=== PATIENT | male | born 1980 | race Caucasian/White ===

== ENCOUNTER 2020-08-28 23:38 | Emergency (ER) | payer SELFPAY ==
--- NOTE | 2020-08-29 00:58 | RADIOLOGY REPORT (SQ) ---
EXAM DESCRIPTION: CT HEAD WITHOUT IV CONTRAST COMPLETED DATE/TME: 08/29/2020 00:16 CLINICAL HISTORY: 39 years, Male, AMS, tachypnea COMPARISON: None. TECHNIQUE: 207 Images stored on PACS. All CT scanners at this facility use dose modulation, iterative reconstruction, and/or weight based dosing when appropriate to reduce radiation dose to as low as reasonably achievable (ALARA). [facility]: Dose Right [facility]: CareDose [facility]: Dose Right [facility]: Teradose 4D [facility]: [employer] LIMITATIONS: None. FINDINGS: The globes are intact. The paranasal sinuses and mastoid air cells are well aerated. No displaced or depressed skull fracture. No acute intracranial hemorrhage. CT is limited for evaluation of acute infarct. However, there are multiple areas of diminished attenuation, the largest in the left posterior parieto-occipital region, with other areas of diminished attenuation in the left temporal region and left cerebellar hemisphere. These are nonspecific but areas of evolving infarct are considered. Underlying mass is not excluded. No midline shift. IMPRESSION: Nonspecific areas of diminished attenuation, as described above. Areas of evolving infarct are considered. Other etiologies are not excluded. Consider follow-up with dedicated MRI. TECHNICAL DOCUMENTATION: Quality ID # [id number]: Final reports with documentation of one or more dose reduction techniques (e.g., Automated exposure control, adjustment of the mA and/or kV according to patient size, use of iterative reconstruction technique) copyright 2011 [employer]- All Rights Reserved
--- NOTE | 2020-08-29 01:00 | RADIOLOGY REPORT (SQ) ---
EXAM DESCRIPTION: X-ray, single view of the chest CLINICAL HISTORY: 39 years Male, AMS, tachypnea COMPARISON: None. FINDINGS: Lungs: Lung volumes are low. There is extensive multifocal parenchymal opacification and consolidation which has a nodular appearance. This is concerning for multifocal pneumonia. Findings are most pronounced in the right upper lobe. No pneumothorax or pleural effusion. Mediastinum: Heart size is enlarged. Mediastinum is within normal limits. Bones: Osseous structures are normal. IMPRESSION: Low lung volumes with multifocal nodular infiltrate throughout the lung parenchyma consistent with multifocal pneumonia.
[2020-08-29] MEDS ORDERED: VANCOMYCIN HCL INJ 1000 MG VIAL IV ONE (01:09)
[2020-08-29] MEDS ORDERED: NORMAL SALINE 1000 ML 1,000 ML IV ONE ×3 (01:09→05:28)
[2020-08-29] MEDS ORDERED: CEFEPIME 2 GM/D5W RTU 2 GM/50 ML RTUPB IV ONE (01:24)
--- NOTE | 2020-08-29 01:56 | ER Document Report ---
ED General - General Chief Complaint: Altered Mental Status Stated Complaint: BODY ACHES,ALTERED MENTAL STATUS Time Seen by Provider: 08/28/20 23:55 - HPI Notes: Patient is a 39-year-old male who presents with altered mental status and shortness of breath. He has a history of IV drug abuse. Patient was picked up by police for trespassing. They found him to be altered and took him to the ER. Patient is unable to provide a history. He keeps saying "I don't feel good". Patient is unable to tell me his name or where he is. He is afebrile. Patient is tachypneic. Patient was placed on supplemental nasal cannula oxygen. Past Medical History - General Information source: Patient, Emergency Med Personnel - Social History Smoking Status: Unknown if Ever Smoked Family History: Other Review of Systems - Review of Systems -: Yes ROS unobtainable due to patient's medical condition Physical Exam - Vital signs Vitals: Resp Pulse Ox 23 H 91 L 08/28/20 23:40 08/28/20 23:40 - General In distress: Moderate Notes: VITAL SIGNS: Tachypneic, tachycardic. GENERAL: Acute distress. HEAD: Normal with no signs of head trauma. EYES: EOMI, conjunctiva normal, no discharge. EARS: Hearing grossly intact. NOSE: Normal. NECK: Normal range of motion, no tenderness, supple, no lymphadenopathy, No adenopathy, no JVD. No obvious meningismus. CHEST: Clear breath sounds bilaterally. No wheezes, rales, or rhonchi. CARDIAC: Regular rate and rhythm. VASCULAR: No Edema. ABDOMEN: Normal and soft with no tenderness GENITOURINARY: Normal, No tenderness LYMPATHTIC: No lymphadenopathy noted. MUSCULOSKELETAL: Good range of motion of all major joints. Extremities without clubbing, cyanosis or edema. NEUROLOGICAL: Alert, not oriented. No focal sensory or strength deficits. S peech normal. Confused. Course - Re-evaluation Re-evalutation: 08/29/20 01:57 Patient is confused and unable to follow commands. He is alert. Patient went directly to CT. His head CT is concerning for involuting areas of infarct versus mass. Patient's x-ray is also concerning for multifocal pneumonia. The radiologist called me and recommended we get a stat MRI with contrast. I am unable to do this at this time at this facility. I did discuss with [facility] and who stated that they do not have any beds at this time. I also contacted [facility] and am waiting for their response. Patient was started on immediate antibiotics and fluids. He is on 4 L nasal cannula. I was called to bedside as patient is becoming more agitated. He is now on 15 L nonrebreather with a pulse ox of 85%. Patient is also vomiting blood. Decision was made to intubate. Central line was placed in the right femoral region as patient had very poor access. Patient was given a heparin bolus as his troponin is 3 and he is hypoxic even on 100% FiO2. The infusion of heparin was canceled as his platelets came back at 32. I called back [facility] as patient will now be requiring ICU for transfer. Patient's Xray after intubation is concerning for worsening pneumonia. I did not covid test him because we do not have a rapid test available. 08/29/20 01:58 08/29/20 04:23 08/29/20 05:04 Patient was accepted at [facility] and will be going by helicopter. They did request that I obtain a CT scan of his chest abdomen and pelvis. Patient continues to be febrile. He was ordered an additional rectal Tylenol. Transport is at bedside. 08/31/20 02:34 - Vital Signs Vital signs: Temp Pulse Resp BP Pulse Ox 101.0 F H 29 H 113/35 L 89 L 08/29/20 06:06 08/29/20 06:06 08/29/20 06:06 08/29/20 06:06 - Laboratory Result Diagrams: 08/29/20 01:25 08/29/20 01:25 Laboratory results interpreted by me: 08/29/20 08/29/20 08/29/20 01:25 01:25 01:25 WBC 14.5 H Hgb 13.3 L RDW 15.0 H Plt Count 39 L Seg Neuts % (Manual) 94 H Band Neutrophils % 2 L Lymphocytes % (Manual) 2 L Monocytes % (Manual) 2 L Abs Neuts (Manual) 13.9 H Abs Lymphs (Manual) 0.3 L Carbonic Acid ABG pH ABG pCO2 Sodium 129.5 L Chloride 93 L BUN 41 H Glucose 121 H Lactic Acid 3.8 H Total Bilirubin 1.5 H Direct Bilirubin 0.6 H AST 112 H ALT 54 H Creatine Kinase 254 H Total Protein 6.2 L Albumin 3.1 L Urine Protein Urine Blood 08/29/20 08/29/20 08/29/20 04:55 05:16 05:38 WBC Hgb RDW Plt Count Seg Neuts % (Manual) Band Neutrophils % Lymphocytes % (Manual) Monocytes % (Manual) Abs Neuts (Manual) Abs Lymphs (Manual) Carbonic Acid 1.61 H ABG pH 7.22 L ABG pCO2 53.6 H Sodium Chloride BUN Glucose Lactic Acid 2.7 H Total Bilirubin Direct Bilirubin AST ALT Creatine Kinase Total Protein Albumin Urine Protein 100 H Urine Blood MODERATE H - Diagnostic Test Radiology reviewed: Image reviewed, Reports reviewed - EKG Interpretation by Me EKG shows normal: Sinus rhythm Rate: Tachycardia Rhythm: NSR When compared to previous EKG there are: Previous EKG unavailable Additional EKG results interpreted by me: 08/29/20 04:37 sinus tachycardia, rate of 120. QTc 413. ST depressions lateral leads. Procedures - Central Line Right Femoral Time completed: 04:15 Consent obtained: No - emergency procedure Central line pre-insertion: Sterile PPE donned, Chloraprep applied Central line lumen type: Triple Ultrasound guided: Yes Line secured with sutures: Yes Central line post-insertion: Blood return from lumens, Biopatch applied, Sutured, Sterile dressing applied Number of attempts: 3 Complications: No - Intubation Orotracheal Airway evaluation: Normal anatomy Mallampati Classification: Class 1 Medications: Etomidate, Other - Rocuronium Intubation method: Orotracheal Blade type: Balta Blade size: 3 Equipment used: Glidescope ETT size: 7.5 ETT secured at: Lips ETT secured at (cm): 21 Breath Sounds after Intubation: Equal End tidal CO2 confirmed: Yes Ventilator settings: AC Tidal volume: 450 FiO2: 100 Respirations: 15 PEEP: 10 Post Intubation Xray: Yes Intubation Complications: No complications Critical Care Note - Critical Care Note Total time excluding time spent on procedures (mins): 60 Comments: Upon my evaluation, this patient had a high probability of imminent or life-threatening deterioration due to acute respiratory failure which required my direct attention, intervention, and personal management. I have personally provided 60 minutes of critical care time exclusive of time spent on separately billable procedures. Time includes review of laboratory data, radiology results, discussion with consultants, and monitoring for potential decompensation. Interventions were performed as documented above. Discharge - Discharge Clinical Impression: Multifocal pneumonia Altered mental status Qualifiers: Altered mental status type: unspecified Qualified Code(s): R41.82 - Altered mental status, unspecified Acute respiratory failure Qualifiers: Respiratory failure complication: hypoxia Qualified Code(s): J96.01 - Acute respiratory failure with hypoxia Sepsis Qualifiers: Sepsis type: sepsis due to unspecified organism Sepsis acute organ dysfunction status: unspecified Qualified Code(s): A41.9 - Sepsis, unspecified organism Condition: Critical Disposition: [facility]
[2020-08-29 02:01] LABS: HEMATOCRIT 38.6 % (37.9-51.0); HEMOGLOBIN 13.3 g/dL (13.5-17.0); MEAN CORPUSCULAR HEMOGLOBIN 27.6 pg (27.0-33.4); MEAN CORPUSCULAR HGB CONC 34.5 g/dL (32.0-36.0); MEAN CORPUSCULAR VOLUME 80 fl (80-97); RED BLOOD COUNT 4.81 10^6/uL (4.35-5.55); WHITE BLOOD COUNT 14.5 10^3/uL (4.0-10.5)
[2020-08-29] MEDS ORDERED: ACETAMINOPHEN 650 MG SUPP.RECT PR ONE (02:07)
[2020-08-29 02:13] LABS: ALBUMIN 3.1 g/dL (3.5-5.0); ALKALINE PHOSPHATASE 92 U/L (38-126); ANION GAP 10 (5-19); ASPARTATE AMINO TRANSFERASE 112 U/L (17-59); BILIRUBIN,DIRECT 0.6 mg/dL (0.0-0.4); BILIRUBIN,TOTAL 1.5 mg/dL (0.2-1.3); BLOOD UREA NITROGEN 41 mg/dL (7-20); CALCIUM 8.5 mg/dL (8.4-10.2); CARBON DIOXIDE 27 mmol/L (22-30); CHLORIDE 93 mmol/L (98-107); CREATINE KINASE 254 U/L (55-170); GLUCOSE 121 mg/dL (75-110); POTASSIUM 3.7 mmol/L (3.6-5.0); TOTAL PROTEIN 6.2 g/dL (6.3-8.2)
[2020-08-29] MEDS ORDERED: HEPARIN SODIUM,PORCINE/D5W 25,000 UNIT/250 ML RTUINJ IV PRN (02:28)
[2020-08-29] MEDS ORDERED: HEPARIN SOD (PORCINE) 1,000 UNIT/ML 10 ML VIAL IV ONE (02:28)
[2020-08-29 02:42] LABS: ABSOLUTE LYMPHOCYTES# (MANUAL) 0.3 10^3/uL (0.5-4.7); ABSOLUTE MONOCYTES # (MANUAL) 0.3 10^3/uL (0.1-1.4); BAND NEUTROPHILS % (MANUAL) 2 % (3-5); BASOPHILS % (MANUAL) 0 % (0-2); EOSINOPHILS % (MANUAL) 0 % (0-6); LYMPHOCYTES % (MANUAL) 2 % (13-45); MONOCYTES % (MANUAL) 2 % (3-13); SEGMENTED NEUTROPHILS % (MAN) 94 % (42-78); TOTAL CELLS COUNTED 100
[2020-08-29 02:45] LABS: ANISOCYTOSIS SLIGHT; BURR CELLS 1+; POIKILOCYTOSIS SLIGHT; POLYCHROMASIA SLIGHT; TOXIC GRANULATION 1+; TOXIC VACUOLATION PRESENT
[2020-08-29 02:46] LABS: PLATELET COMMENT DECREASED; TEAR DROP CELLS SLIGHT
[2020-08-29] MEDS ORDERED: LORAZEPAM INJ 2 MG/1 ML VIAL IV ONE (03:06)
[2020-08-29 03:07] LABS: PLATELET COUNT 39 10^3/uL (150-450)
[2020-08-29] MEDS ORDERED: PROPOFOL 1,000 MG/100 ML INFUS..BTL IV PRN (03:23)
[2020-08-29] MEDS ORDERED: ROCURONIUM BROMIDE INJ 50 MG/5 ML VIAL IV ONE (04:14)
[2020-08-29] MEDS ORDERED: ETOMIDATE INJ/PF 20 MG/10 ML SDV IV ONE ×2 (04:14→10:10)
--- NOTE | 2020-08-29 04:43 | RADIOLOGY REPORT (SQ) ---
CLINICAL HISTORY: et tube placement COMPARISON: 08/29/2020. TECHNIQUE: XR CHEST 1 VIEW 08/29/2020 12:00 AM CDT FINDINGS: The heart is borderline in size. There is extensive bilateral airspace disease, significantly worse since the prior study. There is no pleural effusion. There is no pneumothorax. There are no acute osseous findings. Endotracheal tube tip is in the midtrachea. NG tube tip is in the stomach. IMPRESSION: Significantly worsening bilateral pneumonia.
[2020-08-29] MEDS ORDERED: ACETAMINOPHEN 325 MG SUPP.RECT PR ONE (05:01)
[2020-08-29 05:03] LABS: INTERNATIONAL RATION (INR) 0.97; PROTHROMBIN TIME 13.1 SEC (11.4-15.4)
[2020-08-29 05:04] LABS: PARTIAL THROMBOPLASTIN TIME 30.4 SEC (23.5-35.8)
[2020-08-29] MEDS ORDERED: FENTANYL CITRATE INJ/PF 100 MCG/2 ML AMPUL IV ONE ×2 (05:18→05:31)
[2020-08-29 05:38] LABS: ARTERIAL BLOOD BASE EXCESS -6.5 mmol/L; ARTERIAL BLOOD FIO2 100%; ARTERIAL BLOOD H2CO3 1.61 mmol/L (1.05-1.35); ARTERIAL BLOOD HCO3 21.6 mmol/L (20-24); ARTERIAL BLOOD O2 SATURATION 94.3 % (94-98); ARTERIAL BLOOD PCO2 53.6 mmHg (35-45); ARTERIAL BLOOD PH 7.22 (7.35-7.45); ARTERIAL BLOOD PO2 84.7 mmHg (80-100); ARTERIAL BLOOD TOTAL CO2 23.3 mmol/L (23-27)
[2020-08-29] MEDS ORDERED: MIDAZOLAM 2 MG/2 ML INJ IV ONE (05:51)
[2020-08-29] MEDS ORDERED: ALBUTEROL SULFATE 0.083% NEB 2.5 MG/3 ML AMPUL NEB ONE (05:54)
[2020-08-29 06:11] VITALS: BP 113/35
[2020-08-29 06:25] LABS: APPEARANCE,URINE SLIGHTLY-CLOUDY; BILIRUBIN,URINE NEGATIVE (NEGATIVE); COLOR,URINE YELLOW; GLUCOSE, URINE NEGATIVE (NEGATIVE); KETONES,URINE NEGATIVE (NEGATIVE); PROTEIN,URINE 100 mg/dL (NEGATIVE); URINE SPECIFIC GRAVITY 1.024; UROBILINOGEN,URINE NEGATIVE mg/dL (<2.0)
[2020-08-29 06:27] LABS: URINE BARBITURATES SCREEN NEGATIVE; URINE BENZODIAZEPINES SCREEN NEGATIVE; URINE COCAINE SCREEN NEGATIVE; URINE METHADONE SCREEN NEGATIVE; URINE PHENCYCLIDINE SCREEN NEGATIVE
[2020-08-29 06:28] LABS: URINE AMPHETAMINES SCREEN UNCONFIRMED POSITIVE; URINE MARIJUANA (THC) SCREEN UNCONFIRMED POSITIVE
--- NOTE | 2020-08-29 08:59 | EKG REPORT ---
SEVERITY:- ABNORMAL ECG - SINUS TACHYCARDIA WILLIS, CONSIDER BIATRIAL ABNORMALITIES PROBABLE ANTEROSEPTAL INFARCT, AGE INDETERM : Confirmed by: Trenton Fulton 29-Aug-2020 08:58:23
== END 2020-08-29 06:31 | disposition short-term general hospital (02) ==
LOC: ER 23:38
DX: A41.9 Sepsis, unspecified organism (principal); J96.01 Acute respiratory failure with hypoxia; J18.9 Pneumonia, unspecified organism; K92.0 Hematemesis; R00.0 Tachycardia, unspecified
CPT/HCPCS: 93005; 99291; 96361; 51701; 51702; 96375; 96365; 96366; 96367; 36415; 87040; 82962; 82803; 82550; 83605; 85025; 85610; 85730; 87077; 80053; 81001; 84484; 87186; 80307; 87150 ×26; 71045; 70450; 94660; 93010; 31500; 36556; J3490 ×3; J2250; J3010; J2704; J1644; J7030; J3370; J0692